=== PATIENT | male | born 1950 | race Caucasian/White ===

== ENCOUNTER 2016-09-17 05:33 | Inpatient (IN) ==
[2016-09-17] MEDS ORDERED: LIDOCAINE 1% 20 ML VIAL ONE (06:23)
[2016-09-17] MEDS ORDERED: HEPARIN/NACL 0.9% 2 UNITS/ML 2,000 ML IV ONE (06:23)
[2016-09-17] MEDS ORDERED: ENOXAPARIN 30 MG/0.3 ML SYRINGE ONE (06:23)
[2016-09-17] MEDS ORDERED: TIROFIBAN 5,000 MCG/100 ML PREMIX IV ONE ×2 (06:23→09:22)
--- NOTE | 2016-09-17 06:57 | History and Physical Update ---
Sedation H&P Update - Dictation Physical: refer to H&P completed by admitting physician - Physical Exam Mental Status: alert and oriented Heart: regular rate and rhythm Lung: clear to auscultation Abdomen: within normal limits Vitals: within normal limits - Sedation Plan for Sedation: moderate Patient Consent: Procedure disscussed with patient and patinet has consented., Risks and benefits were discussed with patient,including infection,, bleeding, injury to surrounding structures, seizure, temporary nerve, Patient understands and accepts potential risks/benefits and agrees to, proceed. ASA Class: IV Airway Assessment: Class II: Soft palate, uvula, fauces visible
[2016-09-17] MEDS ORDERED: NITROGLYCERIN SL 0.4 MG TABLET SL PRN (07:04)
[2016-09-17] MEDS ORDERED: ONDANSETRON 4 MG/2 ML VIAL IV PRN (07:04)
--- NOTE | 2016-09-17 07:04 | Cardiology History & Physical ---
History of Present Illness History of present illness: Cardiology history and physical 66-year-old man transferred to [facility] by ER with acute inferolateral wall SD. EKG shows hyperacute ST segment elevation in the inferior and lateral leads and the patient is having severe pain with hypotension. Blood pressure approximately 75 systolic. Patient has a previous anterior wall infarction with LAD stent by Dr. Albarran in 2005. Last cardiac cath was 05/08/[address] Albarran. It showed anteroapical dyskinesis with ejection fraction of 25% with a patent LAD stent site. 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 The patient status post biventricular ICD May [address] Albarran. The defibrillator reached EOL and he underwent a Medtronic Concerta oh implantation with lead upgrade November 23, 2009. The patient states his last shock was 1 year ago. He does not smoke. He has a rare beer only. History of diabetes. No history of stroke. He is 6 feet tall and weighs approximately 200 pounds. No history of peptic ulcer disease. We have no lab data at this time. Blood pressure is 75 systolic. Pulse is 96 and regular patient is diaphoretic and in obvious pain. Poor oral hygiene. Flat neck veins. Decreased breath sounds with rhonchi. Regular rhythm with no murmur. Abdomen obese soft benign. Femoral pulses are 1+ bilaterally with a faint bilateral bruit. Distal pulses are 1+ extremities are cool. Impression Acute inferolateral wall SD with cardiogenic shock Status post anterior SD with LAD stent 2005 Last cardiac cath May 08 on 6 showed dyskinetic anterolateral wall with ejection fraction 25% with patent LAD stent site, mild circumflex, and mild dominant right coronary disease. Status post biventricular ICD May 2006 Status post lead upgrade and Medtronic Concerta 024 EOL 11/23/[address] Albarran. His last shock was 1 year ago. Plan Emergent heart cath intervention No family present at this time Prognosis poor. He has had a previous anterior SD with antral apical dyskinesis and ejection fraction 25% by cardiac cath May 2006 and he is now having a large inferolateral wall SD with shock. Allergies Allergy/AdvReac Type Severity Reaction Status Date / Time Unable to Obtain Allergy Unverified 09/17/16 05:34 Cardiology Physical Exam - Constitutional Vitals: Intake and Output 09/16/16 09/16/16 09/17/16 15:59 23:59 07:59 Other: Weight 90.718 kg Patient Weight 09/17/16 23:59 Weight 90.718 kg
[2016-09-17] MEDS ORDERED: TICAGRELOR 90 MG TABLET ONE (07:08)
[2016-09-17] MEDS ORDERED: SODIUM CHLORIDE 0.9% 1,000 ML IV SCH (07:30)
--- NOTE | 2016-09-17 07:39 | Cardiac Catheterization ---
Date of Procedure:: 09/17/16 Pre-op Diagnosis: Inferior infarction with cardiogenic shock Post-op diagnosis: same Procedure: Cardiac cath procedure note #1 left heart catheterization #2 selective coronary angiography #3 left ventriculography #4 successful RCA stent 3 #5 Intra-aortic balloon pump insertion Omnipaque was used for the procedure Description of procedure The patient was transferred from [facility] with an acute inferolateral wall MS with shock. Following sterile preparation draping of the right groin local anesthesia was achieved by infiltration with 1% Xylocaine. Using a Cook needle the right femoral artery was cannulated and a #6 sheath was inserted. A 6 [place] pigtail catheter was advanced retrograde across aortic valve into the left ventricle and the end-diastolic pressure was recorded. Left ventriculography was performed the JAIMES projection using 24 cc of contrast. A pullback was made across phytic valve. The pigtail catheter change for a 6 [place] left Roman catheter and left coronary angiography was performed in several JAIMES and DIVEHI projections. Catheter change for a 6 6 [place] left Amplatz guiding catheter and the anomalous right coronary was cannulated. A [employer]-water flex wire was used and carefully advanced across the lesion and placed into the distal vessel. The patient was placed on Aggrastat infusion and also received IV Lovenox. Balloon dilatations restored some flow into the vessel which had a high clot burden. A 3.5 x 23 mm, 3.5 x 23 mm, and 3.5 x 20 mm Alpine Zions drug -eluting stents were then placed in overlapping fashion. The maximum inflation pressure was at 14 dianna for 30 seconds with a 3.75 balloon, creating a 4.1 mm lumen. OUSMANE grade III flow was restored. There was brisk runoff with no dissection there was some clot in the RV marginal branch. The guiding catheter and sheath were then removed over a guidewire and an 8 [place] sheath was then inserted. A 7.5 intra-balloon pump was introduced and advanced to just below the aortic knob. The balloon was purged and then inflated 1-2 for timing purposes then set at 1-1. The augmented blood pressure was 92/70. The balloon pump was sutured in place. The patient was transported to CCU in critical condition. Hemodynamic data LV 79/20 Aortic pressure 79/53 mean 63 Selective coronary angiography Left main trunk is patent bifurcates. The LAD is a moderate-sized vessel that reaches the apex. There is a 70% stenosis proximally after the first septal. The diagonal branch is patent. There is a large first OM branch extends out the apex. He has mild disease only. 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 It is occluded proximally. There are faint [id number] collaterals. Left ventriculography The left ventricle is dilated. The entire anteroapical segment is akinetic inferior wall is hypokinetic. Ejection fraction is 50%. There is no mitral regurgitation noted. 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 Postdilated with a 3.75 mm balloon to 14 temperatures, creating a 4.1 mm lumen. OUSMANE grade III flow restored. Disposition The patient has a documented ischemic myopathy. He is status post anterior MS with LAD intervention in 2005. He is known to have a dyskinetic anterolateral wall with ejection fraction 25% by cardiac cath May 08, 2006. He now presents with an acute large inferolateral wall MS with cardiogenic shock. 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 The vessel was reopened and stented 3 with a 3.5 x 23 mm Alpine Zions drug-coated stents. Postdilated to a 4.1 mm lumen. OUSMANE grade III flow restored. The 6 [place] sheath was then upsized to an 8 [place] sheath and a balloon pump was inserted. His augmented blood pressure was 92/75 on one- to-one balloon pump support O2 sat 100% on 6 L cannula and the pulse was 63 with ventricular pacing. He is transported to CCU in critical condition. Cine pictures were reviewed with the patient's family. His prognosis is guarded. Implants: Successful proximal and mid RCA stents 3.5 x 23 mm Alpine Zions drug-coated stent in overlapping fashion 3. Maximum inflation pressure 14 dianna for 30 seconds creating a 4.1 mm lumen. OUSMANE grade III flow restored. Anesthesia: moderate conscious sedation Surgeon / Physician: Brian Craig Estimated blood loss: minimal Specimens: none sent Condition: critical Disposition: ICU/CCU - Medications / Follow-up
--- NOTE | 2016-09-17 07:41 | Event Note ---
Event note Intraoperative balloon pump insertion. The patient presented with a large inferolateral wall MS with occluded proximal right coronary artery. He is known to have a prior anterior infarction with dyskinetic anterolateral wall. Ejection fraction is now 15%. He underwent stenting of the right coronary artery with 3.5 x 23 mm drug-coated stents in overlapping fashion. Patient presented with cardiogenic shock. Blood pressure was 70. The 6 [place] sheath was upgraded to an 8 [place] sheath. A 7.5 mm intra -balloon pump was inserted. The balloon was purged and then set at 1-2 for timing purposes and one-to-one for full augmentation. Blood pressure was 92/75 augmented on one-to-one balloon pump support O2 sat 100% on 6 L cannula and rhythm was ventricular pacing at a rate of 63 the balloon pump was sutured in place. The patient's temperature CCU in critical condition.
[2016-09-17] MEDS: TIROFIBAN 5,000 MCG/100 ML PREMIX IV SCH ×2 (09:20→09:28)
[2016-09-17] MEDS ORDERED: TIROFIBAN 5,000 MCG/100 ML PREMIX IV SCH (09:30)
--- NOTE | 2016-09-17 09:44 | EKG Report ---
Stationary ECG Study [facility] Test Date: 09/17/2016 9:09:29 AM Pat Name: URBAN PERAZA Department: Room: Gender: M [employer] R[employer] Agent: : 1950 Requested by: Brian Craig Order Number: [id number] Jaylyn MD: BALJINDER BARRAGAN Intervals [place] Rate: 75 P: 999 WI: 0 QRS: 79 QRSD: 152 T: 243 QT: 492 QTc: 520 Interpretive Statements ATRIAL FIBRILLATION RIGHT BUNDLE BRANCH BLOCK ANTEROSEPTAL INFARCT, AGE UNDETERMINED T WAVE ABNORMALITY, POSSIBLE LATERAL ISCHEMIA OR DIGITALIS EFFECT T WAVE ABNORMALITY, POSSIBLE INFERIOR ISCHEMIA OR DIGITALIS EFFECT Electronically Signed On 09-19-16 12:41:03 CDT by BALJINDER BARRAGAN [email or web address]
[2016-09-17 10:02] LABS: Basophils # 0.1 10*3/uL (0.0-0.2); Basophils % 0.6 % (0.0-0.8); Eosinophils % 0.4 % (0.00-10.9); Hematocrit 39.2 VOL% (42.0-52.0); Hemoglobin 12.9 GM/DL (14.0-18.0); Immature Granulocytes % 0.5 %; Immature Granulocytes Absolute 0.04 #; Lymphocytes # 0.7 10*3/uL (1.4-4.0); Lymphocytes % 8.3 % (21.2-54.2); Mean Corpuscular HGB Conc 32.9 GM/DL (32-36); Mean Corpuscular Hemoglobin 31 PG (27-34); Mean Corpuscular Volume 93.6 FL (87-102); Mean Platelet Volume 10.5 FL (9.6-12.0); Monocytes # 0.5 10*3/uL (0.11-0.8); Neutrophils # 7.1 10*3/uL (1.4-7.4); Neutrophils % 84.2 % (38.7-73.9); Platelet Count 135 T/CUMM (130-400); Red Blood Count 4.19 MC/CUMM (3.8-5.5); White Blood Count 8.4 T/CUMM (4-12)
[2016-09-17 10:44] LABS: CKMB % 9.4 %; Calcium 8.1 MG/DL (8.5-10.1); Osmolality,Calculated 284.3 MOS/KG (273-304); Potassium 4.3 MMOL/L (3.5-5.1)
[2016-09-17 10:46] LABS: Troponin I Only 57.9 NG/ML (0.00-0.045)
[2016-09-17] MEDS: ASPIRIN EC 81 MG TABLET PO SCH (11:36)
[2016-09-17] MEDS: PANTOPRAZOLE 40 MG TABLET PO SCH (11:36)
[2016-09-17] MEDS: TICAGRELOR 90 MG TABLET PO SCH ×2 (11:38→20:07)
[2016-09-17] MEDS ORDERED: ENOXAPARIN 100 MG/ML SYRINGE SUBCUT SCH (12:00)
[2016-09-17] MEDS ORDERED: HEPARIN/NACL 0.9% 2 UNITS/ML 500 ML IV ONE (14:45)
[2016-09-17 16:06] LABS: CKMB % 9.7 %
[2016-09-17] MEDS: ENOXAPARIN 100 MG/ML SYRINGE SUBCUT SCH (18:09)
[2016-09-17] MEDS ORDERED: ALUMINUM/MAGNES/SIMETH MAX STR 30 ML UDCUP PO PRN (18:10)
[2016-09-17] MEDS ORDERED: SIMETHICONE CHEW 80 MG TABLET PO PRN (19:56)
[2016-09-17] MEDS: ROSUVASTATIN 20 MG TABLET PO SCH (20:07)
--- NOTE | 2016-09-17 21:17 | XRay Report ---
Portable chest Date: 09/17/2016 Clinical history: Nasogastric tube placement Comparison: 10/04/2013 Technique: Portable AP sitting chest Findings: The nasogastric tube projects in the stomach. However there is a side hole at the GE junction. Limited evaluation of chest with right subclavian atrioventricular ASCVD. Impression: The nasogastric tube projects in the stomach. However a sidehole projects at the GE junction. Ideally the tube should be advanced farther into the stomach. PROCEDURE INTERPRETED AT [facility] DEPARTMENT OF RADIOLOGY Final Report Signed by: Dr. Shauna Amaya
[2016-09-18 00:26] LABS: CKMB % 8.9 %
[2016-09-18 00:27] LABS: Troponin I Only 86.1 NG/ML (0.00-0.045)
[2016-09-18 04:45] LABS: Basophils % 0.2 % (0.0-0.8); Eosinophils % 0.1 % (0.00-10.9); Hematocrit 38.4 VOL% (42.0-52.0); Hemoglobin 12.9 GM/DL (14.0-18.0); Immature Granulocytes % 0.4 %; Immature Granulocytes Absolute 0.04 #; Lymphocytes % 10.6 % (21.2-54.2); Mean Corpuscular HGB Conc 33.6 GM/DL (32-36); Mean Corpuscular Hemoglobin 30 PG (27-34); Mean Corpuscular Volume 89.5 FL (87-102); Mean Platelet Volume 10.8 FL (9.6-12.0); Monocytes # 0.9 10*3/uL (0.11-0.8); Monocytes % 9.2 % (1.7-12.7); Neutrophils # 7.5 10*3/uL (1.4-7.4); Neutrophils % 79.5 % (38.7-73.9); Platelet Count 142 T/CUMM (130-400); Red Blood Count 4.29 MC/CUMM (3.8-5.5); Red Cell Distribution Width 14.5 % (9.3-17.3); White Blood Count 9.4 T/CUMM (4-12)
[2016-09-18 05:19] LABS: Albumin 3.2 G/DL (3.4-5.0); Osmolality,Calculated 280.5 MOS/KG (273-304); Phosphorous 2.8 MG/DL (2.5-4.9); Potassium 4.6 MMOL/L (3.5-5.1)
[2016-09-18 05:23] LABS: Risk Ratio 3.98; VLDL CHOLESTEROL 18.8 MG/DL
[2016-09-18 05:26] LABS: Calcium 7.9 MG/DL (8.5-10.1); Osmolality,Calculated 278.5 MOS/KG (273-304); Potassium 4.6 MMOL/L (3.5-5.1)
[2016-09-18] MEDS: ENOXAPARIN 100 MG/ML SYRINGE SUBCUT SCH ×2 (06:06→17:47)
--- NOTE | 2016-09-18 07:54 | EKG Report ---
Stationary ECG Study [facility] Test Date: 09/18/2016 7:54:04 AM Pat Name: URBAN PERAZA Department: Room: 121 Gender: M Assessment Technician: JEAN : 1950 Requested by: Brian Craig Order Number: [id number] Reading MD: KELLI HA Intervals [place] Rate: 96 P: 999 DE: 0 QRS: 87 QRSD: 162 T: -81 QT: 379 QTc: 433 Interpretive Statements ATRIAL FIBRILLATION WITH ABERRANT CONDUCTION OR VENTRICULAR PREMATURE COMPLEXES at 96 bpm RIGHT BUNDLE BRANCH BLOCK ANTEROSEPTAL MYOCARDIAL INFARCTION, PROBABLY OLD MODERATE T-WAVE ABNORMALITY, CONSIDER ISCHEMIA Electronically Signed On 09-21-16 16:46:14 CDT by KELLI HA [email or web address]
--- NOTE | 2016-09-18 08:49 | Cardiology Progress Note ---
<Ashlie Dee E - Last Filed: 09/18/16 09:24> Assessment and Plan - Time spent with patient Time spent with patient: Greater than 30 minutes (1) Cardiogenic shock Status: Acute Assessment and plan: See plan of care listed below Current Visit: Yes (2) ST elevation myocardial infarction (STEMI) of inferolateral wall Status: Resolved Assessment and plan: See plan of care listed below Current Visit: Yes (3) Ischemic cardiomyopathy Status: Chronic Assessment and plan: See plan of care listed below Current Visit: Yes (4) CAD (coronary artery disease) Status: Chronic Assessment and plan: See plan of care listed below Current Visit: Yes (5) On intra-aortic balloon pump assist Status: Acute Assessment and plan: See plan of care listed below Current Visit: Yes (6) Hypertension Status: Chronic Assessment and plan: See plan of care listed below Current Visit: Yes (7) Dyslipidemia Status: Chronic Assessment and plan: See plan of care listed below Current Visit: Yes (8) Obesity Status: Chronic Assessment and plan: See plan of care listed below Current Visit: Yes (9) Noncompliance with medication regimen Status: Chronic Assessment and plan: See plan of care listed below Current Visit: Yes Cardiology - PN: Subj Interval history: NEWSPAPER DISTRIBUTOR SUPERVISOR: DR. ALBARRAN PATIENT IS BEING SEEN IN THE CCU SUMMARY: 66-year-old male followed by Dr. Gokul Albarran. History of known coronary artery disease, ischemic cardiomyopathy (previously EF 25%) status post biventricular ICD implantation, hypertension, dyslipidemia, diabetes , chronic atrial fibrillation, obesity, history of medical noncompliance. Saturday, September 17, 2016 patient presented to [facility] in transfer from [facility] with acute inferolateral MS. He was taken emergently to the cardiac catheterization lab by Dr. Craig as the patient was in cardiogenic shock. The following procedure was performed: Procedure: Cardiac cath procedure note #1 left heart catheterization #2 selective coronary angiography #3 left ventriculography #4 successful RCA stent 3 #5 Intra-aortic balloon pump insertion #6 EF 50% Omnipaque was used for the procedure DAY SEPTEMBER 18, 2016: Overnight, patient has been without chest pain, heaviness or tightness. He is breathing comfortably. He has been maintained on IABP 1-1 ratio and is not requiring pressors. He has chronic atrial fibrillation and this has been rate controlled while he is here. (In the past, Dr. Albarran performed cardioversion but he went back into atrial fibrillation. Amiodarone was initiated with a plan to cardiovert him but he had to be anticoagulated first. He was tried on Eliquis but he adamantly refused to take this due to lack of energy. He was given a prescription for Xarelto but he did not start it because he read the package insert and it sounded just like Eliquis. He was subsequently noncompliant with Coumadin and has now been maintained on aspirin only.) Troponin peaked at 118 and is decreasing. Other labs are stable this morning. He is taking aspirin 81 mg daily, Brilinta 90 mg orally twice daily. Also on Lovenox 100 mg subcu twice daily. Today we will try to begin to wean the balloon pump. We will decrease to 1-2 ratio and monitor accordingly. Hopefully, within the next 24 hours, he will be weaned off balloon pump. Will consider echo when IABP out. ASSESSMENT/PLAN: 1. INFEROLATERAL STEMI -now post revascularization. Continue current plan of care above 2. CAD -continue aspirin, Brilinta, will introduce a beta-ekta and LADAN inhibitor when blood pressure will allow. 3. ICM - EF 50% per LVGram. Will order an echocardiogram once assist device out 4. HYPERTENSION -history of underlying hypertension. Will add antihypertensives when able 5. DYSLIPIDEMIA -continue Crestor. 6. IABP -will try to wean and monitor blood pressure and vital signs accordingly 7. ATRIAL FIB, CHRONIC -history of noncompliance in the past with anticoagulants. Rate controlled 8. OBESITY -dietary counseling prior to discharge 9. S/P BI-V ICD -reports he has not received a shock in over a year 10. HISTORY OF NON-COMPLIANCE -reiterated the importance of compliance. Exam (Progress Note) - Constitutional Vitals: Period Temp Pulse Resp BP Sys/Ann Pulse Ox Last 24 Hr 97.2 F-98.6 F 73-105 10-26 80-134/40-109 94-99 Exam: General: [Appears well with no apparent distress.] [Pleasant and cooperative. ] [Appears comfortable.] HEENT: [PERRL, normocephalic, atraumatic. Mucous membranes moist. No jaundice noted. Conjunctiva moist and clear, sclerae anicteric] Neck: No JVD/HJR, no thyromegaly or lymphadenopathy noted. No carotid bruit appreciated Cardiac: [Irregularly irregular rhythm, controlled rate] [No obvious murmur rub or gallop.] Lungs: [Clear to auscultation without accessory muscle use to assist the respiratory pattern.] Not requiring oxygen Abdomen: Soft, bowel sounds normoactive. Nontender and nondistended. No abdominal bruit or thrill noted. No masses noted. Musculoskeletal: No fluid collection. Decreased range of motion is noted. Extremities: Right groin reveals stable access site without hematoma. No clubbing, cyanosis noted. [ No edema noted.] Upper extremity pulses 2+. Lower extremity pulses 2+. Capillary refill less than 3 seconds. Skin: No unusual lesions or rashes. No skin breakdown appreciated. Neuro: Awake, alert and oriented 3. Moves all extremities well without hemiparesis or paralysis. No essential tremor is appreciated. Result/EKG - Labs CBC & BMP: 09/18/16 04:22 09/18/16 04:22 Lab Results: I have reviewed the past 24 hour labs Labs: Laboratory Results - last 24 hr 09/17/16 09/17/16 09/17/16 09:48 09:48 15:20 WBC 8.4 RBC 4.19 Hgb 12.9 L Hct 39.2 L MCV 93.6 MCH 31 MCHC 32.9 RDW 14.0 Plt Count 135 MPV 10.5 Neut % (Auto) 84.2 H Lymph % (Auto) 8.3 L N[place]olls % (Auto) 6.0 Eos % (Auto) 0.4 Baso % (Auto) 0.6 Neut # (Auto) 7.1 Lymph # (Auto) 0.7 L [place] # (Auto) 0.5 Eos # (Auto) 0.0 Baso # (Auto) 0.1 Immature Gran % 0.5 Nucleated RBC % 0.0 Immature Gran # 0.04 Nucleated RBCs # 0.00 Sodium 141 Potassium 4.3 Chloride 110 H Carbon Dioxide 23 Anion Gap 12.3 BUN 19 H Creatinine 1.20 GFR Calculation 78 BUN/Creatinine Ratio 15.00 Glucose 131 H Calculated Osmolality 284.3 Calcium 8.1 L Phosphorus Magnesium Total Creatine Kinase 1444 H 1938 H D CK-MB (CK-2) 135.3 H 188.8 H D CK and CKMB Interp 9.4 9.7 Troponin I 57.900 H 118.000 H D Albumin Triglycerides Cholesterol LDL Cholesterol VLDL Cholesterol HDL Cholesterol Heart Disease Risk Ratio 09/17/16 09/18/16 09/18/16 23:34 04:22 04:22 WBC 9.4 RBC 4.29 Hgb 12.9 L Hct 38.4 L MCV 89.5 MCH 30 MCHC 33.6 RDW 14.5 Plt Count 142 MPV 10.8 Neut % (Auto) 79.5 H Lymph % (Auto) 10.6 L [place]oll[place] % (Auto) 9.2 Eos % (Auto) 0.1 Baso % (Auto) 0.2 Neut # (Auto) 7.5 H Lymph # (Auto) 1.0 L [place] # (Auto) 0.9 H Eos # (Auto) 0.0 Baso # (Auto) 0.0 Immature Gran % 0.4 Nucleated RBC % 0.0 Immature Gran # 0.04 Nucleated RBCs # 0.00 Sodium Potassium Chloride Carbon Dioxide Anion Gap BUN Creatinine GFR Calculation BUN/Creatinine Ratio Glucose Calculated Osmolality Calcium Phosphorus Magnesium Total Creatine Kinase 1988 H CK-MB (CK-2) 177.3 H D CK and CKMB Interp 8.9 Troponin I 86.100 H D Albumin Triglycerides 94 Cholesterol 167 LDL Cholesterol 114.0 VLDL Cholesterol 18.8 HDL Cholesterol 42 Heart Disease Risk Ratio 3.98 09/18/16 09/18/16 04:22 04:22 WBC RBC Hgb Hct MCV MCH MCHC RDW Plt Count MPV Neut % (Auto) Lymph % (Auto) Nuckolls % (Auto) Eos % (Auto) Baso % (Auto) Neut # (Auto) Lymph # (Auto) [place]olls # (Auto) Eos # (Auto) Baso # (Auto) Immature Gran % Nucleated RBC % Immature Gran # Nucleated RBCs # Sodium 139 139 Potassium 4.6 4.6 Chloride 109 H 109 H Carbon Dioxide 21 20 L Anion Gap 13.6 14.6 BUN 20 H 19 H Creatinine 1.00 1.00 GFR Calculation 100 100 BUN/Creatinine Ratio 20.00 19.00 Glucose 111 H 106 Calculated Osmolality 280.5 278.5 Calcium 8.0 L 7.9 L Phosphorus 2.8 Magnesium 2.0 Total Creatine Kinase CK-MB (CK-2) CK and CKMB Interp Troponin I Albumin 3.2 L Triglycerides Cholesterol LDL Cholesterol VLDL Cholesterol HDL Cholesterol Heart Disease Risk Ratio - EKG EKG results: interpreted by me EKG shows: atrial fibrillation <Orlando Malloy - Last Filed: 09/18/16 11:51> Cardiology - PN: Subj Interval history: Patient personally interviewed and examined and chart reviewed. Discussed case with Ashlie Dee DAIRY LABORATORY TECHNICIAN and agree with the notes and assessment. He is doing well with exception is having a lot of GI distention is known well with the NG tube. He's had no nausea or vomiting. He is passing gas. On standby with a balloon pump his systolic pressures are in the 90s to low 100s. Nothing will continue to monitor this and may be pull his balloon pump this afternoon or tomorrow. Exam (Progress Note) - Constitutional Vitals: Period Temp Pulse Resp BP Sys/Ann Pulse Ox Last 24 Hr 97.2 F-98.6 F 73-105 10-26 92-141/40-109 94-99 Result/EKG - Labs CBC & BMP: 09/18/16 04:22 09/18/16 04:22 Labs: Laboratory Results - last 24 hr 09/17/16 09/17/16 09/18/16 15:20 23:34 04:22 WBC 9.4 RBC 4.29 Hgb 12.9 L Hct 38.4 L MCV 89.5 MCH 30 MCHC 33.6 RDW 14.5 Plt Count 142 MPV 10.8 Neut % (Auto) 79.5 H Lymph % (Auto) 10.6 L [place] % (Auto) 9.2 Eos % (Auto) 0.1 Baso % (Auto) 0.2 Neut # (Auto) 7.5 H Lymph # (Auto) 1.0 L [place] # (Auto) 0.9 H Eos # (Auto) 0.0 Baso # (Auto) 0.0 Immature Gran % 0.4 Nucleated RBC % 0.0 Immature Gran # 0.04 Nucleated RBCs # 0.00 Sodium Potassium Chloride Carbon Dioxide Anion Gap BUN Creatinine GFR Calculation BUN/Creatinine Ratio Glucose Calculated Osmolality Calcium Phosphorus Magnesium Total Creatine Kinase 1938 H D 1988 H CK-MB (CK-2) 188.8 H D 177.3 H D CK and CKMB Interp 9.7 8.9 Troponin I 118.000 H D 86.100 H D Albumin Triglycerides Cholesterol LDL Cholesterol VLDL Cholesterol HDL Cholesterol Heart Disease Risk Ratio 09/18/16 09/18/16 09/18/16 04:22 04:22 04:22 WBC RBC Hgb Hct MCV MCH MCHC RDW Plt Count MPV Neut % (Auto) Lymph % (Auto) [place]oll[place] % (Auto) Eos % (Auto) Baso % (Auto) Neut # (Auto) Lymph # (Auto) [place]oll[place] # (Auto) Eos # (Auto) Baso # (Auto) Immature Gran % Nucleated RBC % Immature Gran # Nucleated RBCs # Sodium 139 139 Potassium 4.6 4.6 Chloride 109 H 109 H Carbon Dioxide 21 20 L Anion Gap 13.6 14.6 BUN 20 H 19 H Creatinine 1.00 1.00 GFR Calculation 100 100 BUN/Creatinine Ratio 20.00 19.00 Glucose 111 H 106 Calculated Osmolality 280.5 278.5 Calcium 8.0 L 7.9 L Phosphorus 2.8 Magnesium 2.0 Total Creatine Kinase CK-MB (CK-2) CK and CKMB Interp Troponin I Albumin 3.2 L Triglycerides 94 Cholesterol 167 LDL Cholesterol 114.0 VLDL Cholesterol 18.8 HDL Cholesterol 42 Heart Disease Risk Ratio 3.98
[2016-09-18] MEDS: TICAGRELOR 90 MG TABLET PO SCH ×2 (09:52→21:15)
[2016-09-18] MEDS: PANTOPRAZOLE 40 MG TABLET PO SCH (09:52)
[2016-09-18] MEDS: ASPIRIN EC 81 MG TABLET PO SCH (09:52)
[2016-09-18] MEDS: ROSUVASTATIN 20 MG TABLET PO SCH (21:15)
[2016-09-19 04:46] LABS: Basophils # 0.1 10*3/uL (0.0-0.2); Basophils % 0.5 % (0.0-0.8); Eosinophils % 0.1 % (0.00-10.9); Hematocrit 38.3 VOL% (42.0-52.0); Hemoglobin 13.1 GM/DL (14.0-18.0); Immature Granulocytes % 0.3 %; Immature Granulocytes Absolute 0.03 #; Lymphocytes % 9.3 % (21.2-54.2); Mean Corpuscular HGB Conc 34.2 GM/DL (32-36); Mean Corpuscular Hemoglobin 31 PG (27-34); Mean Corpuscular Volume 90.1 FL (87-102); Monocytes % 9.5 % (1.7-12.7); Neutrophils # 8.3 10*3/uL (1.4-7.4); Neutrophils % 80.3 % (38.7-73.9); Platelet Count 126 T/CUMM (130-400); Red Blood Count 4.25 MC/CUMM (3.8-5.5); Red Cell Distribution Width 14.6 % (9.3-17.3); White Blood Count 10.3 T/CUMM (4-12)
[2016-09-19 05:17] LABS: Calcium 8.8 MG/DL (8.5-10.1); Magnesium 2.1 MG/DL (1.8-2.4); Osmolality,Calculated 282.3 MOS/KG (273-304); Potassium 4.3 MMOL/L (3.5-5.1)
[2016-09-19] MEDS: ENOXAPARIN 100 MG/ML SYRINGE SUBCUT SCH (06:11)
--- NOTE | 2016-09-19 07:53 | Cardiology Progress Note ---
Assessment and Plan (1) Chronic atrial fibrillation Status: Chronic Assessment and plan: Chronic issue for the patient. His ventricular response is stable. Historically he is been noncompliant with adequate ablation therapy. Current Visit: Yes (2) Cardiogenic shock Status: Acute Assessment and plan: Patient is on balloon pump. His course secondary to his acute ischemic event. His systolic pressures are stable at this time I think we will plan on trying his balloon pump out today. Current Visit: Yes (3) ST elevation myocardial infarction (STEMI) of inferolateral wall Status: Resolved Assessment and plan: Is an acute event and lead to his cardiogenic shock. He has known coronary disease. Current Visit: Yes (4) Ischemic cardiomyopathy Status: Chronic Assessment and plan: This is been managed by his biventricular pacemaker and apparently had improvement of his EF previously. His EF certainly is diminished now at 15% based on his LV gram on catheterization. Current Visit: Yes (5) CAD (coronary artery disease) Status: Chronic Assessment and plan: Known cardiac disease with prior intervention of his LAD prior to this admission. He will need risk factor modification to continue. Current Visit: Yes (6) On intra-aortic balloon pump assist Status: Acute Assessment and plan: We will try to pull this today. Current Visit: Yes (7) Hypertension Status: Chronic Assessment and plan: None issue at this time since he is been post cardiogenic shock. Current Visit: Yes (8) Dyslipidemia Status: Chronic Assessment and plan: He will need aggressive lipid treatment in the a.m. statins. Current Visit: Yes (9) Obesity Status: Chronic Assessment and plan: He needs weight loss but that this patient is motivated to do so. Current Visit: Yes (10) Noncompliance with medication regimen Status: Chronic Assessment and plan: History of not following up in the office to take his medications supposed to. 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 Albarran Patient doing well today having less gas in the dialysis center but still in situ. The patient has documented cardiomyopathy with biventricular AICD. The patient was admitted September 17 and underwent emergent catheterization with an acute inferior lateral myocardial infarction. Dr. Kiara yatese catheterization but because cardiogenic shock requiring a balloon pump. He had 3 stents placed apparently the RCA with ejection fraction according the note of 50%. The patient is continued on the balloon pump and we will plan on pulling of today since his pressures are in the 90s plus off augmentation. I think his GI status is because he has not been able to get up he may have some ileus post cardiogenic shock. He though has bowel sounds. His other medical issues include that of some chronic atrial fibrillation as well as diabetes dyslipidemia hypertension and chronic obesity. He's had some history of medical noncompliance. We'll hold his Lovenox and pull his balloon pump today. ROS Gen.: No fever or chills. No complaints. HEENT: No headache. Lungs: No shortness of breath, wheezing, coughing, hemoptysis. Cardiac: No palpitations, chest pains, dyspnea. GI: No nausea, vomiting, diarrhea. He is having some issues still with some bloating in abdominal distention. : Has Quinones. Neurologic: No acute changes. Exam (Progress Note) - Constitutional Vitals: Period Temp Pulse Resp BP Sys/Ann Pulse Ox Last 24 Hr 97.3 F-99.1 F 80-98 10-24 94-141/56-99 95-98 Exam: General appearance: normal weight, no acute distress. He is unable and comfortable lying in bed. HEENT exam: normal inspection, atraumatic. He has NG tube nasally. Neck exam: normal inspection no JVD. No carotid bruit. Trachea is in midline Respiratory/lungs exam: clear to auscultation anteriorly and bilaterally with good air movement. Cardiovascular exam: Irregular rhythm, no murmur or gallop or rub. No precordial lift. Chest wall exam: nontender, pacemaker right upper chest. GI/Abdominal exam: Abdomen is slightly distended and tympanitic. bowel sounds present, protuberant but soft, nontender. Extremeties/musculoskeletal: normal inspection without edema or cyanosis. Extremities are warm including his right foot. Neurological exam: alert, oriented X3, no focal deficits Psychiatric exam: normal affect, normal mood. Cognitive function is grossly normal. Skin exam: normal color, warm Result/EKG - Labs CBC & BMP: 09/19/16 04:24 09/19/16 04:24 Lab Results: I have reviewed the past 24 hour labs Labs: Laboratory Results - last 24 hr 09/19/16 09/19/16 04:24 04:24 WBC 10.3 RBC 4.25 Hgb 13.1 L Hct 38.3 L MCV 90.1 MCH 31 MCHC 34.2 RDW 14.6 Plt Count 126 L MPV 11.0 Neut % (Auto) 80.3 H Lymph % (Auto) 9.3 L [place] % (Auto) 9.5 Eos % (Auto) 0.1 Baso % (Auto) 0.5 Neut # (Auto) 8.3 H Lymph # (Auto) 1.0 L [place] # (Auto) 1.0 H Eos # (Auto) 0.0 Baso # (Auto) 0.1 Immature Gran % 0.3 Nucleated RBC % 0.0 Immature Gran # 0.03 Nucleated RBCs # 0.00 Sodium 141 Potassium 4.3 Chloride 109 H Carbon Dioxide 22 Anion Gap 14.3 BUN 16 Creatinine 0.90 GFR Calculation 116 BUN/Creatinine Ratio 17.00 Glucose 113 H Calculated Osmolality 282.3 Calcium 8.8 Magnesium 2.1 - Impressions Impressions: Telemetry atrial fibrillation with controlled ventricular response.
--- NOTE | 2016-09-19 07:59 | EKG Report ---
Stationary ECG Study [facility] Test Date: 09/19/2016 7:38:43 AM Pat Name: URBAN PERAZA Department: Room: 121 Gender: M Suspender Cutter: JEAN : 1950 Requested by: Ashlie Cardoza Order Number: [id number] Reading MD: CHRISTIANO MOYA Intervals [place] Rate: 94 P: 999 AR: 0 QRS: 94 QRSD: 146 T: -60 QT: 402 QTc: 453 Interpretive Statements ATRIAL FIBRILLATION RIGHT BUNDLE BRANCH BLOCK ANTEROSEPTAL MYOCARDIAL INFARCTION, OF INDETERMINATE AGE MODERATE T-WAVE ABNORMALITY, CONSIDER LATERAL ISCHEMIA MODERATE T-WAVE ABNORMALITY, CONSIDER INFERIOR ISCHEMIA Electronically Signed On 09-24-16 10:52:28 CDT by CHRISTIANO MOYA [email or web address]
[2016-09-19] MEDS: PANTOPRAZOLE 40 MG TABLET PO SCH (08:36)
[2016-09-19] MEDS: ASPIRIN EC 81 MG TABLET PO SCH (08:36)
[2016-09-19] MEDS: TICAGRELOR 90 MG TABLET PO SCH ×2 (08:36→21:09)
--- NOTE | 2016-09-19 17:07 | Event Note ---
Intra-aortic balloon pump removal Indications: The patient is hemodynamically stable at this time. Complications: None immediate. Patient's right groin and right leg dressing over the balloon pump was removed. The suture was cut. Then, was placed on standby setting. The right groin and leg was then prepped and draped in appropriate fashion to remove the balloon pump. Occlusive pressure was then applied below the insertion site into her balloon pump. The pocket was then pulled and some bleeding allowed to occur to clear any clots and thrombus. Pressure above the wound was then carried out to get hemostasis of the right groin femoral artery aortotomy site. This was easily done. Pressure would be held and then dressing placed in sandbag during the night. We will leave him at bed rest for the rest the evening and tomorrow progressed into getting out of bed.
[2016-09-19] MEDS: ROSUVASTATIN 20 MG TABLET PO SCH (21:10)
[2016-09-20 04:08] LABS: Basophils % 0.4 % (0.0-0.8); Eosinophils # 0.1 10*3/uL (0.0-0.87); Eosinophils % 0.7 % (0.00-10.9); Hematocrit 39.7 VOL% (42.0-52.0); Hemoglobin 13.1 GM/DL (14.0-18.0); Immature Granulocytes % 0.4 %; Immature Granulocytes Absolute 0.04 #; Lymphocytes # 1.3 10*3/uL (1.4-4.0); Lymphocytes % 13.4 % (21.2-54.2); Mean Corpuscular Hemoglobin 31 PG (27-34); Mean Corpuscular Volume 92.5 FL (87-102); Monocytes # 0.9 10*3/uL (0.11-0.8); Monocytes % 9.2 % (1.7-12.7); Neutrophils # 7.1 10*3/uL (1.4-7.4); Neutrophils % 75.9 % (38.7-73.9); Platelet Count 136 T/CUMM (130-400); Red Blood Count 4.29 MC/CUMM (3.8-5.5); Red Cell Distribution Width 14.4 % (9.3-17.3); White Blood Count 9.4 T/CUMM (4-12)
[2016-09-20 04:38] LABS: Calcium 8.6 MG/DL (8.5-10.1); Magnesium 2.2 MG/DL (1.8-2.4); Osmolality,Calculated 284.1 MOS/KG (273-304); Potassium 4.2 MMOL/L (3.5-5.1)
[2016-09-20] MEDS: PANTOPRAZOLE 40 MG TABLET PO SCH (09:57)
[2016-09-20] MEDS: ASPIRIN EC 81 MG TABLET PO SCH (09:57)
[2016-09-20] MEDS: TICAGRELOR 90 MG TABLET PO SCH ×2 (09:57→21:40)
--- NOTE | 2016-09-20 10:25 | Cardiology Progress Note ---
<Ashlie Dee E - Last Filed: 09/20/16 10:20> Assessment and Plan - Time spent with patient Time spent with patient: Greater than 30 minutes (1) Cardiogenic shock Status: Resolved Assessment and plan: See plan of care listed below Current Visit: Yes (2) ST elevation myocardial infarction (STEMI) of inferolateral wall Status: Resolved Assessment and plan: See plan of care listed below Current Visit: Yes (3) Ischemic cardiomyopathy Status: Chronic Assessment and plan: See plan of care listed below Current Visit: Yes (4) CAD (coronary artery disease) Status: Chronic Assessment and plan: See plan of care listed below Current Visit: Yes (5) On intra-aortic balloon pump assist Status: Resolved Assessment and plan: See plan of care listed below Current Visit: Yes (6) Hypertension Status: Chronic Assessment and plan: See plan of care listed below Current Visit: Yes (7) Dyslipidemia Status: Chronic Assessment and plan: See plan of care listed below Current Visit: Yes (8) Obesity Status: Chronic Assessment and plan: See plan of care listed below Current Visit: Yes (9) Noncompliance with medication regimen Status: Chronic Assessment and plan: See plan of care listed below Current Visit: Yes Cardiology - PN: Subj Interval history: Interval history: MEAT WRAPPER: DR. ALBARRAN PATIENT IS BEING SEEN IN THE CCU SUMMARY: 66-year-old male followed by Dr. Gokul Albarran. History of known coronary artery disease, ischemic cardiomyopathy (previously EF 25%) status post biventricular ICD implantation, hypertension, dyslipidemia, diabetes , chronic atrial fibrillation, obesity, history of medical noncompliance. Saturday morning, September 17, 2016 patient presented to [facility] in transfer from [facility] with acute inferolateral PA. He was taken emergently to the cardiac catheterization lab by Dr. Craig as the patient was in cardiogenic shock. The following procedure was performed: Procedure: Cardiac cath procedure note #1 left heart catheterization #2 selective coronary angiography #3 left ventriculography #4 successful RCA stent 3 #5 Intra-aortic balloon pump insertion #6 EF 50% Omnipaque was used for the procedure DAY 3 SEPTEMBER 20, 2016: Patient continues to improve. Last evening, balloon pump was removed and he continues to improve. Vital signs are stable. Systolic blood pressure averaging 110-120s. Heart rate 80s. Labs are stable this morning. I will order echocardiogram today. Will add Coreg 3.125 mg orally twice daily today. Patient is stable for possible transfer to telemetry today. Cardiac rehab will be consulted. Patient reports he has not had a bowel movement in 10 days, mildly distended but nontender with normoactive bowel sounds. Laxatives will be administered ASSESSMENT/PLAN: 1. INFEROLATERAL STEMI - now post revascularization. Continue current plan of care above 2. CAD -continue aspirin, Brilinta. Add low-dose beta-ekta today. 3. ICM - EF 50% per LVGram. Echo today. 4. HYPERTENSION - history of underlying hypertension. Beta ekta today 5. DYSLIPIDEMIA - continue Crestor. 6. IABP -removed without complication last evening. 7. ATRIAL FIB, CHRONIC - history of noncompliance in the past with anticoagulants. Rate controlled 8. OBESITY - dietary counseling prior to discharge 9. S/P BI-V ICD - reports he has not received a shock in over a year 10. HISTORY OF NON-COMPLIANCE - reiterated the importance of compliance. Exam (Progress Note) - Constitutional Vitals: Period Temp Pulse Resp BP Sys/Ann Pulse Ox Last 24 Hr 97.6 F-98.3 F 76-112 7-30 86-134/52-92 95-99 Exam: General: [Appears well with no apparent distress.] [Pleasant and cooperative. ] [Appears comfortable.] HEENT: [PERRL, normocephalic, atraumatic. Mucous membranes moist. No jaundice noted. Conjunctiva moist and clear, sclerae anicteric] Neck: No JVD/HJR, no thyromegaly or lymphadenopathy noted. No carotid bruit appreciated Cardiac: [Irregularly irregular rhythm, controlled rate] [No obvious murmur rub or gallop.] Lungs: [Clear to auscultation without accessory muscle use to assist the respiratory pattern.] Not requiring oxygen Abdomen: Soft, bowel sounds normoactive. Nontender and nondistended. No abdominal bruit or thrill noted. No masses noted. Musculoskeletal: No fluid collection. Decreased range of motion is noted. Extremities: Right groin reveals stable access site without hematoma. Mild ecchymosis noted. No clubbing, cyanosis noted. [ No edema noted.] Upper extremity pulses 2+. Lower extremity pulses 2+. Capillary refill less than 3 seconds. Skin: No unusual lesions or rashes. No skin breakdown appreciated. Neuro: Awake, alert and oriented 3. Moves all extremities well without hemiparesis or paralysis. No essential tremor is appreciated. Result/EKG - Labs CBC & BMP: 09/20/16 03:17 09/20/16 03:17 Lab Results: I have reviewed the past 24 hour labs Labs: Laboratory Results - last 24 hr 09/20/16 09/20/16 03:17 03:17 WBC 9.4 RBC 4.29 Hgb 13.1 L Hct 39.7 L MCV 92.5 MCH 31 MCHC 33.0 RDW 14.4 Plt Count 136 MPV 11.0 Neut % (Auto) 75.9 H Lymph % (Auto) 13.4 L [place] % (Auto) 9.2 Eos % (Auto) 0.7 Baso % (Auto) 0.4 Neut # (Auto) 7.1 Lymph # (Auto) 1.3 L [place] # (Auto) 0.9 H Eos # (Auto) 0.1 Baso # (Auto) 0.0 Immature Gran % 0.4 Nucleated RBC % 0.0 Immature Gran # 0.04 Nucleated RBCs # 0.00 Sodium 142 Potassium 4.2 Chloride 109 H Carbon Dioxide 23 Anion Gap 14.2 BUN 16 Creatinine 0.90 GFR Calculation 113 BUN/Creatinine Ratio 17.00 Glucose 110 H Calculated Osmolality 284.1 Calcium 8.6 Magnesium 2.2 - Diagnostic Findings Procedure: Chest x-ray: report reviewed by dc - EKG EKG results: interpreted by dc EKG shows: atrial fibrillation <Orlando Malloy - Last Filed: 09/20/16 12:44> Assessment and Plan (1) Chronic atrial fibrillation Status: Chronic Current Visit: Yes (2) Cardiogenic shock Status: Resolved Current Visit: Yes (3) ST elevation myocardial infarction (STEMI) of inferolateral wall Status: Resolved Current Visit: Yes (4) Ischemic cardiomyopathy Status: Chronic Current Visit: Yes (5) CAD (coronary artery disease) Status: Chronic Current Visit: Yes (6) On intra-aortic balloon pump assist Status: Resolved Current Visit: Yes (7) Hypertension Status: Chronic Current Visit: Yes (8) Dyslipidemia Status: Chronic Current Visit: Yes (9) Obesity Status: Chronic Current Visit: Yes (10) Noncompliance with medication regimen Status: Chronic Current Visit: Yes Cardiology - PN: Subj Interval history: Patient personally interviewed and examined by me and chart reviewed. Discussed the patient's case with Ashlie Dee STEAMING MACHINE OPERATOR. Agree with history as well as examine assessment. This patient tends to progress and do well post myocardial infarction intervention. He has ejection fraction is 15%. He required intervertebral balloon pump because of cardiogenic shock. Procedure requiring intra-aortic balloon pump. The patient is stable but did have a lot of bowel gas are quite itchy 2. The patient progressively yesterday afternoon he is interval improvement was removed. He is been hemodynamically stable since then. He has chronic atrial fibrillation and is introduced possible high today. His CBC is stable as his other lab work. At present we will plan on transferring the patient to telemetry after which we continue rehabilitation. Hopefully home setting. The need to echocardiogram. We'll adjust his medications for rate control. Exam (Progress Note) - Constitutional Vitals: Period Temp Pulse Resp BP Sys/Ann Pulse Ox Last 24 Hr 98.1 F-99.1 F 78-112 7-30 86-134/52-92 94-99 Result/EKG - Labs CBC & BMP: 09/20/16 03:17 09/20/16 03:17 Labs: Laboratory Results - last 24 hr 09/20/16 09/20/16 03:17 03:17 WBC 9.4 RBC 4.29 Hgb 13.1 L Hct 39.7 L MCV 92.5 MCH 31 MCHC 33.0 RDW 14.4 Plt Count 136 MPV 11.0 Neut % (Auto) 75.9 H Lymph % (Auto) 13.4 L [place] % (Auto) 9.2 Eos % (Auto) 0.7 Baso % (Auto) 0.4 Neut # (Auto) 7.1 Lymph # (Auto) 1.3 L [place] # (Auto) 0.9 H Eos # (Auto) 0.1 Baso # (Auto) 0.0 Immature Gran % 0.4 Nucleated RBC % 0.0 Immature Gran # 0.04 Nucleated RBCs # 0.00 Sodium 142 Potassium 4.2 Chloride 109 H Carbon Dioxide 23 Anion Gap 14.2 BUN 16 Creatinine 0.90 GFR Calculation 113 BUN/Creatinine Ratio 17.00 Glucose 110 H Calculated Osmolality 284.1 Calcium 8.6 Magnesium 2.2
[2016-09-20] MEDS ORDERED: CARVEDILOL 3.125 MG TABLET PO SCH (10:30)
[2016-09-20] MEDS: DIGOXIN 0.25 MG TABLET PO SCH (14:17)
[2016-09-20] MEDS ORDERED: MAGNESIUM HYDROXIDE SUSP 30 ML UDCUP PO PRN (15:33)
[2016-09-20] MEDS ORDERED: MAGNESIUM HYDROXIDE SUSP 30 ML UDCUP PO ONE (15:33)
--- NOTE | 2016-09-20 19:13 | ECHO Report ---
Orlando Flannery Exam Date: 09/20/2016 10:58 Referring Physician: Technologist: Christie Alonzo SEBAS Age: 66 Ht (in): 73 Wt (lb): 208 Gender: M Exam Location: [facility] Echo Indications: Cardiogenic shock, Inferolateral STEMI, CAD, Essential (primary) hypertension, Ischemic cardiomyopathy, Chronic atrial fib, Dyslipidemia, hx BiV ICD BP: 97 / 62 HR: 99 Rhythm: Atrial fibrillation Technical Quality: Fair IMPRESSIONS 1. Underlying rhythm is atrial fibrillation with controlled ventricular response. 2. Left ventricle is at least mildly dilated with severe global hypokinesis and ejection fraction 50%. There are segmental wall motion amount is as discussed below indicative of prior myocardial infarction. 3. Left atrium is moderately dilated. 4. Right atrium is mildly dilated. 5. Right ventricle is normal size and systolic function. 6. Pacemaker leads are noted in the right-sided chambers. 7. Mild sclerotic aortic valve otherwise normal. 8. Other valvular structures are unremarkable. 9. No gross evidence of elevated right-sided pressures. MEASUREMENTS (Male / Female) Normal Values 2D ECHO LV Diastolic Diameter PLAX 6.2 cm 4.2 - 5.9 / 3.9 - 5.3 cm LV Systolic Diameter PLAX 5.9 cm LV Fractional Shortening PLAX 5.8 % IVS Diastolic Thickness 1.1 cm 0.6 - 1.0 / 0.6 - 0.9 cm LVPW Diastolic Thickness 1.1 cm 0.6 - 1.0 / 0.6 - 0.9 cm RV Internal Dim ED PLAX 3.6 cm Aortic Root Diameter 4.1 cm LA Systolic Diameter LX 5.0 cm 3.0 - 4.0 / 2.7 - 3.8 cm DOPPLER TR Peak Velocity 223.0 cm/s TR Peak Gradient 19.9 mmHg FINDINGS Left Ventricle Mildly increased left ventricular cavity size with global hypokinesis. Mild left ventricular hypertrophy. Left ventricular ejection fraction is estimated at 15 %. There are diffuse segmental wall motion abnormalities consistent with prior ischemic disease and myocardial infarction especially the apex as well as the anterior septal wall which appear to be akinetic. Right Ventricle Normal right ventricular size. Catheter/pacemaker wire visualized in the right ventricle. Right Atrium The right atrium is mildly enlarged. Catheter/pacemaker wire in the right atrial cavity. Left Atrium Moderately increased left atrial size. Mitral Valve Morphologically normal mitral valve. Trace mitral valve regurgitation. Aortic Valve Aortic valve is a tricuspid structure with sclerosis without stenosis or regurgitation. Tricuspid Valve Morphologically normal tricuspid valve. Trace to mild tricuspid valve regurgitation. Tricuspid regurgitation velocities suggest a PAP of 30 mmHg. Pulmonic Valve Morphologically normal pulmonic valve. Trace pulmonary valve regurgitation. Pericardium Normal pericardium without effusion. Aorta Normal ascending aorta dimension. Orlando Malloy MD (Electronically Signed) Final Date: 20 September 2016 19:12
[2016-09-20] MEDS: ROSUVASTATIN 20 MG TABLET PO SCH (21:40)
[2016-09-20] MEDS: CARVEDILOL 6.25 MG TABLET PO SCH (22:53)
[2016-09-21 06:13] LABS: Basophils # 0.1 10*3/uL (0.0-0.2); Basophils % 0.6 % (0.0-0.8); Eosinophils # 0.1 10*3/uL (0.0-0.87); Eosinophils % 0.8 % (0.00-10.9); Hematocrit 34.6 VOL% (42.0-52.0); Hemoglobin 11.8 GM/DL (14.0-18.0); Immature Granulocytes Absolute 0.09 #; Lymphocytes % 11.1 % (21.2-54.2); Mean Corpuscular HGB Conc 34.1 GM/DL (32-36); Mean Corpuscular Hemoglobin 31 PG (27-34); Mean Corpuscular Volume 89.6 FL (87-102); Mean Platelet Volume 10.6 FL (9.6-12.0); Monocytes # 0.9 10*3/uL (0.11-0.8); Monocytes % 10.5 % (1.7-12.7); Neutrophils # 6.5 10*3/uL (1.4-7.4); Platelet Count 141 T/CUMM (130-400); Red Blood Count 3.86 MC/CUMM (3.8-5.5); Red Cell Distribution Width 14.1 % (9.3-17.3); White Blood Count 8.6 T/CUMM (4-12)
[2016-09-21 07:14] LABS: Calcium 8.1 MG/DL (8.5-10.1); Osmolality,Calculated 279.4 MOS/KG (273-304); Potassium 4.1 MMOL/L (3.5-5.1)
[2016-09-21] MEDS: TICAGRELOR 90 MG TABLET PO SCH ×2 (10:26→21:37)
[2016-09-21] MEDS: PANTOPRAZOLE 40 MG TABLET PO SCH (10:27)
[2016-09-21] MEDS: ASPIRIN EC 81 MG TABLET PO SCH (10:27)
[2016-09-21] MEDS: CARVEDILOL 6.25 MG TABLET PO SCH ×2 (10:31→10:36)
--- NOTE | 2016-09-21 12:04 | Cardiology Progress Note ---
Assessment and Plan (1) Chronic atrial fibrillation Status: Chronic Assessment and plan: Chronic issue for the patient. His ventricular response is stable. Current Visit: Yes (2) ST elevation myocardial infarction (STEMI) of inferolateral wall Status: Resolved Assessment and plan: Is an acute event and lead to his cardiogenic shock. This is now stable. He is recovering from this. Current Visit: Yes (3) Ischemic cardiomyopathy Status: Chronic Assessment and plan: This is been managed by his biventricular pacemaker and apparently had improvement of his EF previously. His EF certainly is diminished now at 15% based on his LV gram on catheterization this is confirmed on echocardiogram. Current Visit: Yes (4) CAD (coronary artery disease) Status: Chronic Assessment and plan: Known cardiac disease with prior intervention of his LAD prior to this admission. Now with further intervention this hospitalization. Current Visit: Yes (5) Hypertension Status: Chronic Assessment and plan: Blood pressure stable at this time. Current Visit: Yes (6) Dyslipidemia Status: Chronic Assessment and plan: He is now on Crestor. Current Visit: Yes (7) Noncompliance with medication regimen Status: Chronic Assessment and plan: History of not following up in the office to take his medications supposed to. He is even at this time resistant with the discussion of swing bed. Current Visit: Yes Cardiology - PN: Subj Interval history: The patient now on telemetry. He is walking cannulate the room. He is not having any chest pain. He denies shortness of breath but just feels fatigued. His echocardiogram revealed ejection fraction 15% with segmental wall motion abnormality is consistent with prior myocardial infarction, right and left atrium are dilated. His rhythm remains atrial fibrillation with fairly good rate response. He is denying any cardiac symptoms other than just fatigue and will dyspnea on room. He is making progress note. He is coming visualization though that his cardiac function is going to limit his activity. I did mention to him about swing bed but he is very reluctant and resistant to this. Patient's lower reveals chemistries to be stable. The patient's CBC is unremarkable stable. He will probably here over the weekend. Exam (Progress Note) - Constitutional Vitals: Period Temp Pulse Resp BP Sys/Ann Pulse Ox Last 24 Hr 98.4 F-99.7 F 80-102 15-22 87-118/60-82 93-98 Exam: General appearance: normal weight, no acute distress. He is sitting on side the bed. HEENT exam: normal inspection, atraumatic. Neck exam: normal inspection no JVD. No carotid bruit. Trachea is in midline Respiratory/lungs exam: clear to auscultation bilaterally anteriorly and posteriorly with good air movement. Cardiovascular exam: Irregular rhythm, no murmur or gallop or rub. No precordial lift. Chest wall exam: nontender, pacemaker right upper chest. GI/Abdominal exam: Abdomen is slightly distended and tympanitic. bowel sounds present, protuberant but soft, nontender. Extremeties/musculoskeletal: normal inspection without edema or cyanosis. Neurological exam: alert, oriented X3, no focal deficits Psychiatric exam: normal affect, normal mood. Cognitive function is grossly normal. Skin exam: normal color, warm Result/EKG - Labs CBC & BMP: 09/21/16 05:59 09/21/16 05:59 Lab Results: I have reviewed the past 24 hour labs (laboratory work is stable.) Labs: Laboratory Results - last 24 hr 09/21/16 09/21/16 09/21/16 05:59 05:59 05:59 WBC 8.6 RBC 3.86 Hgb 11.8 L Hct 34.6 L MCV 89.6 MCH 31 MCHC 34.1 RDW 14.1 Plt Count 141 MPV 10.6 Neut % (Auto) 76.0 H Lymph % (Auto) 11.1 L [place] % (Auto) 10.5 Eos % (Auto) 0.8 Baso % (Auto) 0.6 Neut # (Auto) 6.5 Lymph # (Auto) 1.0 L [place] # (Auto) 0.9 H Eos # (Auto) 0.1 Baso # (Auto) 0.1 Immature Gran % 1.0 Nucleated RBC % 0.0 Immature Gran # 0.09 Nucleated RBCs # 0.00 Sodium 140 Potassium 4.1 Chloride 108 H Carbon Dioxide 25 Anion Gap 11.1 BUN 15 Creatinine 0.90 GFR Calculation 113 BUN/Creatinine Ratio 16.00 Glucose 105 Calculated Osmolality 279.4 Calcium 8.1 L Magnesium 2.0 Digoxin 0.40 L - Impressions Impressions: Telemetry is atrial fibrillation with a well-controlled ventricular response. Specialty Discharge - Follow Up or Referrals
[2016-09-21] MEDS: DIGOXIN 0.25 MG TABLET PO SCH (13:35)
[2016-09-21] MEDS: ROSUVASTATIN 20 MG TABLET PO SCH (21:37)
[2016-09-21] MEDS: CARVEDILOL 3.125 MG TABLET PO SCH (21:38)
[2016-09-22 05:15] LABS: Basophils % 0.5 % (0.0-0.8); Eosinophils # 0.1 10*3/uL (0.0-0.87); Eosinophils % 1.7 % (0.00-10.9); Hematocrit 34.9 VOL% (42.0-52.0); Hemoglobin 11.7 GM/DL (14.0-18.0); Immature Granulocytes % 0.2 %; Immature Granulocytes Absolute 0.02 #; Lymphocytes % 12.7 % (21.2-54.2); Mean Corpuscular HGB Conc 33.5 GM/DL (32-36); Mean Corpuscular Hemoglobin 31 PG (27-34); Mean Corpuscular Volume 91.1 FL (87-102); Mean Platelet Volume 10.2 FL (9.6-12.0); Monocytes # 0.8 10*3/uL (0.11-0.8); Monocytes % 10.3 % (1.7-12.7); Neutrophils # 6.1 10*3/uL (1.4-7.4); Neutrophils % 74.6 % (38.7-73.9); Platelet Count 136 T/CUMM (130-400); Red Blood Count 3.83 MC/CUMM (3.8-5.5); White Blood Count 8.2 T/CUMM (4-12)
[2016-09-22 05:46] LABS: Calcium 8.5 MG/DL (8.5-10.1); Magnesium 1.9 MG/DL (1.8-2.4); Osmolality,Calculated 279.4 MOS/KG (273-304)
[2016-09-22] MEDS: TICAGRELOR 90 MG TABLET PO SCH ×2 (09:11→21:18)
[2016-09-22] MEDS: CARVEDILOL 3.125 MG TABLET PO SCH ×2 (09:11→21:18)
[2016-09-22] MEDS: ASPIRIN EC 81 MG TABLET PO SCH (09:11)
[2016-09-22] MEDS: PANTOPRAZOLE 40 MG TABLET PO SCH (09:23)
--- NOTE | 2016-09-22 13:03 | Cardiology Progress Note ---
Assessment and Plan (1) Chronic atrial fibrillation Status: Chronic Assessment and plan: Chronic issue for the patient. His ventricular response is stable. Has not been on anticoagulants at home. Current Visit: Yes (2) ST elevation myocardial infarction (STEMI) of inferolateral wall Status: Resolved Assessment and plan: Is an acute event and lead to his cardiogenic shock. This is now stable. He is recovering from this and doing well on the telemetry floor. He may be reaching maximal hospital benefit and may be having a home soon. Current Visit: Yes (3) Ischemic cardiomyopathy Status: Chronic Assessment and plan: This is been managed by his biventricular pacemaker and apparently had improvement of his EF previously. His EF certainly is diminished now at 15% based on his LV gram on catheterization this is confirmed on echocardiogram. He is clinically doing well with this. Current Visit: Yes (4) CAD (coronary artery disease) Status: Chronic Assessment and plan: Known cardiac disease with prior intervention of his LAD prior to this admission. He is not had acute intervention is documented above. Current Visit: Yes (5) Hypertension Status: Chronic Assessment and plan: Blood pressure stable at this time. Current Visit: Yes (6) Dyslipidemia Status: Chronic Assessment and plan: He is now on Crestor. Current Visit: Yes (7) Noncompliance with medication regimen Status: Chronic Assessment and plan: History of not following up in the office to take his medications supposed to. He states that he only takes his Coreg once a day cusp he takes it twice a day and it causes him to be fatigued and loss of energy Current Visit: Yes Cardiology - PN: Subj Interval history: Mr. Flannery is doing well today. He is been up and walk around the nursing station. Has no shortness of breath chest pain or other complaints. He is not having any overt angina and no symptoms of heart failure. His rhythm remains atrial fibrillation with controlled ventricular response with an occasional electronic he has not been on chronic anticoagulation at home. Patient's lab work today is stable including his CBC and chemistries. Renal function is stable. He is walking the halls without leg pain and his catheterization site stable. Exam (Progress Note) - Constitutional Vitals: Period Temp Pulse Resp BP Sys/Ann Pulse Ox Last 24 Hr 97.4 F-99.6 F 69-112 16-20 100-118/64-81 93-98 Exam: General appearance: normal weight, no acute distress. He is sitting on side the bed. HEENT exam: normal inspection, atraumatic. Neck exam: normal inspection no JVD. No carotid bruit. Trachea is in midline Respiratory/lungs exam: clear to auscultation bilaterally anteriorly and posteriorly with good air movement. Cardiovascular exam: Irregular rhythm, no murmur or gallop or rub. No precordial lift. Chest wall exam: nontender, pacemaker right upper chest. GI/Abdominal exam: Abdomen is slightly distended and tympanitic. bowel sounds present, protuberant but soft, nontender. Extremeties/musculoskeletal: normal inspection without edema or cyanosis. Neurological exam: alert, oriented X3, no focal deficits Psychiatric exam: normal affect, normal mood. Cognitive function is grossly normal. Skin exam: normal color, warm Result/EKG - Labs CBC & BMP: 09/22/16 05:06 09/22/16 05:06 Lab Results: I have reviewed the past 24 hour labs Labs: Laboratory Results - last 24 hr 09/22/16 09/22/16 05:06 05:06 WBC 8.2 RBC 3.83 Hgb 11.7 L Hct 34.9 L MCV 91.1 MCH 31 MCHC 33.5 RDW 14.0 Plt Count 136 MPV 10.2 Neut % (Auto) 74.6 H Lymph % (Auto) 12.7 L [place] % (Auto) 10.3 Eos % (Auto) 1.7 Baso % (Auto) 0.5 Neut # (Auto) 6.1 Lymph # (Auto) 1.0 L [place] # (Auto) 0.8 Eos # (Auto) 0.1 Baso # (Auto) 0.0 Immature Gran % 0.2 Nucleated RBC % 0.0 Immature Gran # 0.02 Nucleated RBCs # 0.00 Sodium 140 Potassium 4.0 Chloride 107 Carbon Dioxide 22 Anion Gap 15.0 BUN 15 Creatinine 0.90 GFR Calculation 113 BUN/Creatinine Ratio 16.00 Glucose 97 Calculated Osmolality 279.4 Calcium 8.5 Magnesium 1.9 - Impressions Impressions: Telemetry with atrial fibrillation controlled ventricular response. Specialty Discharge - Follow Up or Referrals
[2016-09-22] MEDS: DIGOXIN 0.25 MG TABLET PO SCH (13:59)
[2016-09-22] MEDS: ROSUVASTATIN 20 MG TABLET PO SCH (21:18)
[2016-09-23 04:46] LABS: Basophils # 0.1 10*3/uL (0.0-0.2); Basophils % 0.7 % (0.0-0.8); Eosinophils # 0.3 10*3/uL (0.0-0.87); Eosinophils % 3.9 % (0.00-10.9); Hematocrit 36.1 VOL% (42.0-52.0); Immature Granulocytes % 0.8 %; Immature Granulocytes Absolute 0.07 #; Lymphocytes # 1.3 10*3/uL (1.4-4.0); Lymphocytes % 15.6 % (21.2-54.2); Mean Corpuscular HGB Conc 33.2 GM/DL (32-36); Mean Corpuscular Hemoglobin 31 PG (27-34); Mean Corpuscular Volume 92.3 FL (87-102); Mean Platelet Volume 10.6 FL (9.6-12.0); Monocytes # 0.9 10*3/uL (0.11-0.8); Monocytes % 10.2 % (1.7-12.7); Neutrophils # 5.8 10*3/uL (1.4-7.4); Neutrophils % 68.8 % (38.7-73.9); Platelet Count 159 T/CUMM (130-400); Red Blood Count 3.91 MC/CUMM (3.8-5.5); Red Cell Distribution Width 14.1 % (9.3-17.3); White Blood Count 8.4 T/CUMM (4-12)
[2016-09-23 05:24] LABS: Calcium 8.9 MG/DL (8.5-10.1); Magnesium 1.9 MG/DL (1.8-2.4); Osmolality,Calculated 282.3 MOS/KG (273-304); Potassium 4.1 MMOL/L (3.5-5.1)
[2016-09-23 09:02] VITALS: BP 110/63
[2016-09-23] MEDS: TICAGRELOR 90 MG TABLET PO SCH (09:30)
[2016-09-23] MEDS: CARVEDILOL 3.125 MG TABLET PO SCH (09:30)
[2016-09-23] MEDS: PANTOPRAZOLE 40 MG TABLET PO SCH (09:30)
[2016-09-23] MEDS: ASPIRIN EC 81 MG TABLET PO SCH (09:30)
--- NOTE | 2016-09-23 10:34 | Discharge Summary ---
Hospital Course - Hospital Course Hospital Course: 66-year-old man with known coronary disease and prior known documented cardiomyopathy and chronic atrial fibrillation. The patient has had prior dual- chamber biventricular AICD implanted. On the day of admission he was transferred from [facility] with acute inferior lateral wall myocardial infarction and cardiogenic shock. The patient underwent cardiac catheterization by Dr. Craig emergently with 3 stents placed in the RCA. 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 Postdilated with a 3.75 mm balloon to 14 temperatures, creating a 4.1 mm lumen. OUSMANE grade III flow restored. Postprocedure's place the CCU during which time his and her balloon pump was slowly weaned off over 2-3 days. Balloon pump was removed he was stable. He did have some issues with abdominal bloating NG tube was needed. This resolved quickly though. After interval and pocket was removed the patient was transferred to telemetry where his progress walking and ablating without issues. He is had no shortness of breath chest pain palpitations syncope or near syncope. He is continue with atrial fibrillation which is chronic with controlled ventricular responses. His echocardiogram carried out after balloon pump removed revealed an ejection fraction of 15% with global hypokinesis. Left atrium and right atrium were dilated with normal right ventricular size and systolic function. There is no significant valvular abnormalities noted. The patient has nothing reached maximal hospital benefit and will be discharged to follow with Dr. Albarran in one week. - Time spent with patient Time with patient DS: Greater than 30 minutes Diagnosis - Discharge Diagnosis (1) Chronic atrial fibrillation Status: Chronic (2) ST elevation myocardial infarction (STEMI) of inferolateral wall Status: Resolved (3) Ischemic cardiomyopathy Status: Chronic (4) CAD (coronary artery disease) Status: Chronic (5) Hypertension Status: Chronic (6) Dyslipidemia Status: Chronic (7) Noncompliance with medication regimen Status: Chronic Specialty Discharge - Follow Up or Referrals Discharge Plan - Discharge Data Disposition: Disch To Home/Self Care Condition at Discharge: Stable Discharge Diet: heart healthy Activity: other (low-level activity at home until he sees Dr. Albarran. Cardiac rehabilitation has been consulted.) Hygiene: no restrictions Weight Bearing at Discharge: full weight bearing Driving: not for (until he sees Dr. Albarran.) Contact your physician if you experience:: Shortness of breath, Bleeding, pain uncontrolled by pain medications - Discharge Medications New Aspirin EC Tab 81 mg PO DAILY tablet Continue Multivitamin [One Daily Multivitamin] 1 each PO DAILY Ascorbic Acid [Vitamin C] 500 mg PO DAILY Ticagrelor [Brilinta] 90 mg PO BID #60 tablet Aspirin [Aspirin EC] 81 mg PO DAILY Carvedilol [Coreg] 3.125 mg PO BID #60 tablet Digoxin Tab [Lanoxin Tab] 0.25 mg PO DAILY@1300 #30 tablet Nitroglycerin Sl Tab [Nitrostat] 0.4 mg SL Q5M PRN #30 tablet PRN Reason: Chest Pain Rosuvastatin [Crestor] 40 mg PO BEDTIME #30 tablet Discontinued Carvedilol [Coreg] 6.25 mg PO BEDTIME - Follow Up or Referral - Forms/Instructions Instructions: Myocardial Infarction (GEN), Coronary Artery Disease (GEN), Left Heart Catheterization (DC), Heart Healthy Diet (GEN), Coronary Intravascular Stent Placement (DC) Exam - Constitutional Vitals: Period Temp Pulse Resp BP Sys/Ann Pulse Ox Last 24 Hr 97.4 F-99.3 F 78-97 16-20 102-120/63-82 95-98 Exam: General appearance: normal weight, no acute distress. He is sitting in a chair. HEENT exam: normal inspection, atraumatic. Neck exam: normal inspection no JVD. No carotid bruit. Trachea is in midline Respiratory/lungs exam: clear to auscultation bilaterally anteriorly and posteriorly with good air movement. Cardiovascular exam: Irregular rhythm, no murmur or gallop or rub. No precordial lift. Chest wall exam: nontender, pacemaker right upper chest. GI/Abdominal exam: Abdomen is slightly distended and tympanitic. bowel sounds present, protuberant but soft, nontender. Extremeties/musculoskeletal: normal inspection without edema or cyanosis. Neurological exam: alert, oriented X3, no focal deficits Psychiatric exam: normal affect, normal mood. Cognitive function is grossly normal. Skin exam: normal color, warm Discharge Results Procedures and tests throughout hospitalization: Pending Orders 09/24/16 04:00 BMP w/ Mg [Basic Metabolic Panel w/Mg] IN AM CBC [Comp Blood Count Auto Diff] IN AM Current catheterization with intervention of the RCA with 3 stents and balloon pump. Please see that report as well as nodes in the hospital course. Echocardiogram is noted with ejection fraction 15%. Labs on day of discharge: Labs from last 24 hours 09/23/16 09/23/16 09/23/16 03:47 03:47 03:35 WBC 8.4 RBC 3.91 Hgb 12.0 L Hct 36.1 L MCV 92.3 MCH 31 MCHC 33.2 RDW 14.1 Plt Count 159 MPV 10.6 Neut % (Auto) 68.8 Lymph % (Auto) 15.6 L [place] % (Auto) 10.2 Eos % (Auto) 3.9 Baso % (Auto) 0.7 Neut # (Auto) 5.8 Lymph # (Auto) 1.3 L [place] # (Auto) 0.9 H Eos # (Auto) 0.3 Baso # (Auto) 0.1 Immature Gran % 0.8 Nucleated RBC % 0.0 Immature Gran # 0.07 Nucleated RBCs # 0.00 Sodium 141 Potassium 4.1 Chloride 108 H Carbon Dioxide 24 Anion Gap 13.1 BUN 18 Creatinine 1.10 GFR Calculation 89 BUN/Creatinine Ratio 16.00 Glucose 91 Calculated Osmolality 282.3 Calcium 8.9 Magnesium 1.9 Digoxin 0.80 L - Impressions His car catheterization interventional results are as noted already in hospital course. His echocardiogram results are as noted in hospital course. DS: Provider Date of admission: 09/17/16 07:04 Attending physician on admission: Brian Craig MD Consults: 09/17/16 07:04 Consult to Cardiac Rehabilitation [CONS] Routine Reason for Cardiac Rehabilitation: Risk Factor Modification 09/21/16 10:29 Consult to Physical Therapy [CONS] Routine Reason for Physical Therapy: Evaluate and Treat Discharging clinician: Helena Roche Expected date of discharge: 09/23/16
== END 2016-09-23 12:02 | disposition home or self-care (01) | DRG 270 ==
LOC: N.CC 11:00 → N.CL 11:19 → N.CC 11:20 → N.TELES 09-20 15:09
PROVIDERS: ADMIT Internal Medicine Cardiovascular Disease; ATTEND Internal Medicine Cardiovascular Disease
PROC: CLCCHCL (ICD-10-PCS; 2016-09-17 06:00)

== ENCOUNTER 2019-04-27 17:08 | Inpatient (IN) ==
[2019-04-27] MEDS ORDERED: FUROSEMIDE 40 MG/4 ML VIAL IV STA (20:39)
[2019-04-27 21:22] LABS: Basophils # 0.1 10*3/uL (0.0-0.2); Basophils % 2.2 % (0.0-0.8); Eosinophils # 0.2 10*3/uL (0.0-0.87); Eosinophils % 2.8 % (0.00-10.9); Hematocrit 39.8 VOL% (42.0-52.0); Hemoglobin 13.1 GM/DL (14.0-18.0); Immature Granulocytes % 0.3 %; Immature Granulocytes Absolute 0.02 #; Lymphocytes # 0.9 10*3/uL (1.4-4.0); Lymphocytes % 15.5 % (21.2-54.2); Mean Corpuscular HGB Conc 32.9 GM/DL (32-36); Mean Corpuscular Volume 97.8 FL (87-102); Monocytes % 12.3 % (1.7-12.7); Neutrophils % 66.9 % (38.7-73.9); Platelet Count 102 T/CUMM (130-400); Red Blood Count 4.07 MC/CUMM (3.8-5.5); Red Cell Distribution Width 16.2 % (9.3-17.3); White Blood Count 5.8 T/CUMM (4-12)
[2019-04-27 21:23] LABS: Apearance,Urine CLEAR (Clear); Bilirubin,Urine Negative (Negative); Blood, Urine Small mg/dL (Negative); Glucose,Urine (UA) Negative (Negative); Ketones,Urine Negative (Negative); Mucus,Urine Occasional /LPF (Occasional); Nitrite,Urine Negative (Negative); Protein,Urine Negative; RBC,Urine 5 /HPF (0-4); Squamous Epithelial Cell,Urine Occasional /HPF (0-10); Urine Color Amber (Yellow); Urine Specific Gravity 1.021 (1.001-1.035); WBC,Urine <1 /HPF (0-6)
[2019-04-27 21:30] LABS: Albumin 3.6 G/DL (3.4-5.0); Calcium 9.2 MG/DL (8.5-10.1); Osmolality,Calculated 282.3 MOS/KG (273-304); Total Protein 7.2 G/DL (6.4-8.3); Troponin I < 0.015 NG/ML (0.00-0.045)
[2019-04-27 21:34] LABS: INR 1.1; PT Patient Result 12.2 SECS (9.6-12.2)
[2019-04-27] MEDS ORDERED: NICOTINE 21 MG/24 HR PATCH TRANSDERM PRN (22:34)
[2019-04-27] MEDS ORDERED: ONDANSETRON 4 MG/2 ML VIAL IV PRN (22:34)
[2019-04-27] MEDS ORDERED: BISACODYL 5 MG TABLET PO PRN (22:34)
[2019-04-27] MEDS ORDERED: MORPHINE 4 MG/1 ML VIAL IV PRN (22:34)
[2019-04-27 23:02] LABS: Barbiturates Screen,Urine Negative (Negative); Benzodiazepines Screen,Urine Negative (Negative); Cannabinoid Screen,Urine Negative (Negative); Opiate Screen,Urine Negative (Negative); Phencyclidine Screen,Urine Negative (Negative)
[2019-04-27 23:09] LABS: Albumin 3.6 G/DL (3.4-5.0); Bilirubin,Direct 0.79 MG/DL (0.0-0.20); Bilirubin,Indirect 1.5 MG/DL (0.0-1.0); Bilirubin,Total 2.3 MG/DL (0.2-1.0); Total Protein 7.2 G/DL (6.4-8.3)
[2019-04-27 23:10] LABS: Risk Ratio 2.79
[2019-04-28] LABS: Hepatitis B Core IgM Quant < 0.05 Index; Hepatitis B Surface Ag Quant < 0.10 Index; Hepatitis B Surface Ag Result Negative (Negative); Hepatitis C Virus Ab Quant 0.17 Index; Hepatitis C Virus Ab Result Negative (Negative)
[2019-04-28] MEDS ORDERED: NITROGLYCERIN SL 0.4 MG TABLET SL PRN (00:05)
[2019-04-28] MEDS ORDERED: FUROSEMIDE 40 MG/4 ML VIAL IV ONE (06:05)
[2019-04-28] MEDS: FUROSEMIDE 80 MG TABLET PO SCH (16:54)
[2019-04-28 20:54] LABS: Neutrophils,Peritoneal Fluid 28 %; RBC,Peritoneal Fluid 7179 T/CUMM
[2019-04-28] MEDS: ASPIRIN EC 81 MG TABLET PO SCH (21:59)
[2019-04-29 04:52] LABS: Basophils # 0.1 10*3/uL (0.0-0.2); Basophils % 2.8 % (0.0-0.8); Eosinophils # 0.2 10*3/uL (0.0-0.87); Eosinophils % 4.3 % (0.00-10.9); Hematocrit 38.1 VOL% (42.0-52.0); Immature Granulocytes % 0.2 %; Immature Granulocytes Absolute 0.01 #; Lymphocytes # 0.9 10*3/uL (1.4-4.0); Lymphocytes % 18.6 % (21.2-54.2); Mean Corpuscular HGB Conc 34.1 GM/DL (32-36); Mean Platelet Volume 11.2 FL (9.6-12.0); Monocytes % 12.7 % (1.7-12.7); Neutrophils % 61.4 % (38.7-73.9); Platelet Count 93 T/CUMM (130-400); Red Blood Count 4.01 MC/CUMM (3.8-5.5); Red Cell Distribution Width 15.9 % (9.3-17.3); White Blood Count 4.6 T/CUMM (4-12)
[2019-04-29 05:04] LABS: Bilirubin,Direct 1.25 MG/DL (0.0-0.20); Bilirubin,Indirect 1.4 MG/DL (0.0-1.0); Bilirubin,Total 2.6 MG/DL (0.2-1.0)
[2019-04-29 05:06] LABS: Albumin 3.5 G/DL (3.4-5.0); Bilirubin,Total 3.1 MG/DL (0.2-1.0); Osmolality,Calculated 282.4 MOS/KG (273-304); Total Protein 6.9 G/DL (6.4-8.3)
[2019-04-29 05:33] LABS: Acanthocytes Few; Hypochromasia Slight; Ovalocytes Slight
[2019-04-29 05:34] LABS: Microcytosis 1+; Platelet Estimate Decreased
[2019-04-29] MEDS: MULTIVITAMIN (CENTRUM) TABLET PO SCH (09:35)
[2019-04-29] MEDS: FUROSEMIDE 80 MG TABLET PO SCH ×2 (09:35→16:51)
[2019-04-29] MEDS ORDERED: cefTRIAXone 1,000 MG in SYRINGE 1 EACH IV SCH (12:00)
[2019-04-29] MEDS: SPIRONOLACTONE 50 MG TABLET PO SCH (13:11)
[2019-04-29] MEDS: ASPIRIN EC 81 MG TABLET PO SCH (21:04)
[2019-04-30 05:00] LABS: Basophils # 0.1 10*3/uL (0.0-0.2); Eosinophils # 0.2 10*3/uL (0.0-0.87); Eosinophils % 4.6 % (0.00-10.9); Hematocrit 36.6 VOL% (42.0-52.0); Hemoglobin 12.3 GM/DL (14.0-18.0); Immature Granulocytes % 0.2 %; Immature Granulocytes Absolute 0.01 #; Lymphocytes # 0.9 10*3/uL (1.4-4.0); Lymphocytes % 18.7 % (21.2-54.2); Mean Corpuscular HGB Conc 33.6 GM/DL (32-36); Mean Corpuscular Volume 94.3 FL (87-102); Mean Platelet Volume 10.9 FL (9.6-12.0); Monocytes % 12.4 % (1.7-12.7); Neutrophils % 62.1 % (38.7-73.9); Platelet Count 85 T/CUMM (130-400); Red Blood Count 3.88 MC/CUMM (3.8-5.5); Red Cell Distribution Width 15.6 % (9.3-17.3); White Blood Count 4.6 T/CUMM (4-12)
[2019-04-30 05:38] LABS: Albumin 3.4 G/DL (3.4-5.0); Bilirubin,Total 1.8 MG/DL (0.2-1.0); Calcium 8.4 MG/DL (8.5-10.1); Total Protein 6.5 G/DL (6.4-8.3)
[2019-04-30 06:20] LABS: Eosinophils 3 % (0-10); Lymphocytes 18 % (20-55); Segmented Neutrophils 72 % (50-85); Total Cells Counted 100
[2019-04-30 06:21] LABS: Platelet Estimate Decreased
[2019-04-30 06:22] LABS: Schistocytes Few; Target Cells Few
[2019-04-30] MEDS: SPIRONOLACTONE 50 MG TABLET PO SCH (08:22)
[2019-04-30] MEDS: MULTIVITAMIN (CENTRUM) TABLET PO SCH (08:22)
[2019-04-30] MEDS: FUROSEMIDE 80 MG TABLET PO SCH (08:25)
[2019-04-30 10:16] VITALS: BP 97/63
== END 2019-04-30 11:05 | disposition home or self-care (01) | DRG 292 ==
LOC: N.ED 17:08 → N.EDINP 17:08 → N.2E 23:04 → N.5E 04-28 15:03
PROVIDERS: ADMIT Internal Medicine; ATTEND Internal Medicine